=== PATIENT | male | born 2005 | race Caucasian/White ===

== ENCOUNTER 2024-02-14 16:25 | Emergency (ER) | payer OTHER, SELFPAY ==
[2024-02-14 16:26] VITALS: BP 129/81; PULSE 66; RESP 18; TEMP 37; O2SAT 100; BMI 26.6
== END 2024-02-14 18:48 | disposition left against medical advice (07) ==
LOC: ED 19:04
PROVIDERS: PCP Family Medicine
DX: Z00.00 Encounter for general adult medical examination without abnormal findings (principal)